=== PATIENT | female | born 1990 | race Caucasian/White ===

== ENCOUNTER 2021-02-25 06:25 | Day surgery (SDC) | payer OTHER ==
[~2021-02-25] VITALS: Ht 165.1 cm; Wt 81.8 kg
--- NOTE | ~2021-02-25 | OR ---
[facility] [address], [place] [address] Draft DATE OF OPERATION: 02/25/2021 SURGEON: Janine Buitrago MD PREOPERATIVE DIAGNOSIS: Medial meniscus tear, left knee, anterior cruciate ligament strain. POSTOPERATIVE DIAGNOSIS: Synovitis, left knee. PROCEDURE PERFORMED: Diagnostic arthroscopy, left knee. JBOSS ARCHITECT: None. ANESTHESIA: General. BLOOD LOSS: Minimal. BRIEF HISTORY: Matthew is a 30-year-old female, injured her knee at work. Initial MRI showed significant strain tear in the ACL as well as posteromedial meniscus. The risks and benefits of the operative treatment were discussed with her; however, workman's Comp took a while to approve the procedure. In the meantime, she continued to have pain, but a little in the way of mechanical symptoms. Once approval was obtained, risks, benefits, and alternatives were discussed with the patient and she elected to proceed. DESCRIPTION OF PROCEDURE: Once consent was obtained, she was taken to the operating room. After adequate anesthesia, she was placed on the operating table. All downside pressure points were well padded. The knee was prepped and draped in a standard sterile fashion. Portal sites were injected using 0.25% Marcaine with epinephrine. Standard inferolateral and superolateral portals were established and the scope was introduced into the knee. ARTHROSCOPIC FINDINGS: The knee showed a significant synovitis with redness and swelling throughout. The ACL was noted to be intact and take tension on appropriate drawer test. The gutters were PATIENT NAME: MATTHEW SHUKLA OPERATIVE REPORT DATE OF : [birth year] REPORT #: [id number] PHYSICIAN: JANINE BUITRAGO MD PCP: PEPE MITCHELL MD REPORT IS CONFIDENTIAL AND NOT TO BE RELEASED WITHOUT AUTHORIZATION [facility] [address] [place] [id number] Draft clear. The patella was clear and was noted to track well. No significant chondromalacia was noted throughout the knee. The lateral meniscus was intact. Careful attention was paid to the medial meniscus and it was visualized and palpated on the superior and inferior surfaces and no tear was detected. The MRI was up on the screen in the room and was consulted. These areas were again carefully visualized and palpated. No tear was detected. I suspect that in the interim four months since the MRI was obtained that they likely healed. The scope was then withdrawn. Portals were closed with 3-0 nylon. The knee was injected with 60 mg Toradol at the end of the case. The portals were then dressed with Adaptic, ABD, and Hiren wrap. She tolerated the procedure well. All sponge, needle, and instrument counts were correct. Janine Buitrago MD BA/WILBERL /[id number] Copies: ~ PATIENT NAME: MATTHEW SHUKLA OPERATIVE REPORT DATE OF : [birth year] REPORT #: [id number] PHYSICIAN: JANINE BUITRAGO MD PCP: PEPE MITCHELL MD REPORT IS CONFIDENTIAL AND NOT TO BE RELEASED WITHOUT AUTHORIZATION
[2021-02-25] MEDS ORDERED: DICLOFENAC SODI75 MG PO (08:49)
[2021-02-25] MEDS ORDERED: HYDROCODON-ACE1 EA10 PO (08:49)
--- NOTE | 2021-02-25 08:54 | NUR ---
02/25/21 0854 [place] 0864 PT ARRIVED TO PACU ON 8L VIA MASK AND ORAL AIRWAY IN PLACE. VSS. PT ASLEEP AND NONAROUSABLE.
--- NOTE | 2021-02-25 09:23 | NUR ---
PT ALERT, ORIENTED AND SUPPORTED BY HER WILFREDO. PT SEEMS INFORMED, ALL QUESTIONS ASKED ANSWERED. WILFREDO WILL RETURN FOR DC. PT HAD REQUESTED PRAYER. WILL FOLLOW NEEDED
--- NOTE | 2021-02-25 09:27 | NUR ---
3432 PT BACK TO ROOM FROM PACU AWAKE AND ALERT DENIES PAIN AND NAUSEA. PT EATING CRACKERS AND DRINKING WATER TOLERATES WELL. AT BEDSIDE. CALL LIGHT WITH IN REACH.
--- NOTE | 2021-02-25 10:16 | NUR ---
1005 PT DENIES PAIN AND NAUSEA, BP LOW GIVING REMAINING 500ML FLUID WILL REASSES BP AFTER FLUID IS DONE.
--- NOTE | 2021-02-25 10:34 | NUR ---
BP IMPROVED PT DENIES NAUSEA AND PAIN
--- NOTE | 2021-02-25 10:48 | NUR ---
PT UP TO BATHROOM ABLE TO AMB WITH MIN ASSIST. SHE WAS ABLE TO VOID .
== END 2021-02-25 11:00 | disposition home or self-care (01) ==
LOC: DS 06:25
PROVIDERS: ATTEND Specialist
PROC: 0SJD4ZZ Inspection of Left Knee Joint, Percutaneous Endoscopic Approach (ICD-10-PCS; principal; 2021-02-25 08:15)
DX: M65.9 Synovitis and tenosynovitis, unspecified (principal); J45.909 Unspecified asthma, uncomplicated
CPT/HCPCS: 01400; J0690; J1100; J1885; J2001; J2250; J2405; J2704; J3010

== ENCOUNTER 2022-10-26 04:52 | Emergency (ER) | payer OTHER ==
[~2022-10-26] VITALS: Ht 165.1 cm; Wt 86.5 kg
[~2022-10-26 04:52] MED LIST: DICLOFENAC SODI75 MG PO; HYDROCODON-ACE1 EA10 PO
[2022-10-26 05:16] LABS: EOSINOPHILS 1.2 % (0-6); HEMATOCRIT 40.4 % (35.0-50.0); HEMOGLOBIN 13.6 g/dL (12.0-18.0); LYMPHOCYTES 13.2 % (24-44); MCHC 33.6 g/dl (30-36); MCV 89.2 fl (81-99); MONOCYTES 6.9 % (0-12); NEUTROPHILS 76.7 % (39-80); PLATELET COUNT 357 K/uL (140-440); RBC 4.53 M/ul (4.3-5.7); RDW 12.8 (10.5-15.0)
[2022-10-26 05:29] LABS: ALBUMIN 4.4 g/dL (3.4-5.0); ALBUMIN/GLOBULIN RATIO 1.29 (1.1-2.4); ANION GAP 16.7 (7-21); BILIRUBIN, TOTAL 0.5 ng/dL (0.2-1.0); BUN/CREATININE RATIO 15.21 (6.0-28.6); CALCIUM 9.4 mg/dL (8.5-10.1); CREATININE, SERUM 0.92 mg/dL (0.55-1.02); POTASSIUM 3.7 mmol/L (3.5-5.1); PROTEIN, TOTAL 7.8 g/dL (6.4-8.2)
[2022-10-26] MEDS ORDERED: KRISTALOSE10 GM PO (06:28)
[2022-10-26 06:47] VITALS: BP 109/54
== END 2022-10-26 06:47 | disposition home or self-care (01) ==
LOC: ED 04:52
PROVIDERS: Family Medicine
DX: K59.00 Constipation, unspecified (principal); J45.909 Unspecified asthma, uncomplicated
CPT/HCPCS: 36415; 74018; 80053; 84703; 85025; 96374; 96375; 99283-25; J2060; J2270; J7030